=== PATIENT | male | born 1965 | race Caucasian/White ===

== ENCOUNTER 2018-07-24 21:09 | Emergency (ER) | payer MEDICAID, OTHER ==
[~2018-07-24] VITALS: Ht 177.8 cm; Wt 108.9 kg
[2018-07-24 21:09] VITALS: BP 127/72
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
== END 2018-07-24 22:29 | disposition home or self-care (01) ==
LOC: ER 21:14
DX: S10.83XA Contusion of other specified part of neck, initial encounter (principal); Y04.0XXA Assault by unarmed brawl or fight, initial encounter; Y93.89 Activity, other specified; Y92.89 Other specified places as the place of occurrence of the external cause; Y99.8 Other external cause status